=== PATIENT | female | born 1985 | race Caucasian/White ===

== ENCOUNTER 2019-05-27 05:10 | Emergency (ER) | payer MEDICAID, OTHER ==
[~2019-05-27] VITALS: Ht 162.6 cm; Wt 45.0 kg
[~2019-05-27 05:10] MED LIST: HYDR-4383 PO
[2019-05-27 05:23] VITALS: BP 109/62
[2019-05-27] MEDS ORDERED: AZIT250T81 PO (05:54)
== END 2019-05-27 05:58 | disposition home or self-care (01) ==
LOC: ER 05:11
DX: J20.9 Acute bronchitis, unspecified (principal); F17.200 Nicotine dependence, unspecified, uncomplicated; F11.90 Opioid use, unspecified, uncomplicated; Z79.899 Other long term (current) drug therapy
CPT/HCPCS: 99283